=== PATIENT | female | born 1965 | race African-American/Black ===

== ENCOUNTER 2020-02-18 13:05 | Observation (INO) | payer OTHER ==
[~2020-02-18] VITALS: Ht 175.3 cm; Wt 78.0 kg
[2020-02-18 13:42] VITALS: BP 198/109
[2020-02-18] MEDS ORDERED: SYNTHROID125 MC1 PO (13:46)
[2020-02-18] MEDS ORDERED: METFORMIN HCL500 M3 PO (13:47)
[2020-02-18] MEDS ORDERED: PROTONIX40 M4 PO (13:47)
[2020-02-18] MEDS ORDERED: ESTER-C 1,0001 EACH PO (13:48)
[2020-02-18] MEDS ORDERED: DILTIAZEM ER180 M2 PO (13:48)
[2020-02-18] MEDS ORDERED: MAGNESIUM250 M1 PO (13:48)
[2020-02-18] MEDS ORDERED: KLOR-CON 10 ER10 MEQ PO (13:49)
[2020-02-18] MEDS ORDERED: VITAMIN D375 MCG PO (13:49)
[2020-02-18] MEDS ORDERED: EPIPEN JR0.15 MG/01 IM (13:51)
[2020-02-18 14:10] LABS: ABSOLUTE BASOPHILS 0.1 thou/uL (0.0-0.2); ABSOLUTE EOSINOPHILS 0.7 thou/uL (0.0-0.7); ABSOLUTE LYMPHOCYTES 2.8 thou/uL (0.8-5.3); ABSOLUTE MONOCYTES 0.5 thou/uL (0.0-1.2); EOSINOPHILS 8.7 %; HEMATOCRIT 39.1 % (37.0-47.0); HEMOGLOBIN 12.7 gm/dL (12.0-15.0); LYMPHOCYTES 35.2 %; MCH 29.2 pg (26.0-34.0); MCHC 32.5 g/dL (28.0-37.0); MONOCYTES 6.2 %; MPV 7.1 fl. (7.2-11.1); NUCLEATED RBCS 0 /100WBC; PLATELET COUNT* 374 thou/uL (150-400); POLYS 48.9 %; RBC 4.35 mil/uL (4.20-5.00); RDW-CV 15.4 % (10.5-14.5); WBC 8.1 thou/uL (4.0-11.0)
[2020-02-18 14:23] LABS: APTT 24.7 Seconds (25.0-31.3); INR 0.9; PROTIME 10.1 Seconds (9.20-11.50)
[2020-02-18 14:24] LABS: CALCIUM 8.9 mg/dL (8.5-10.1); CREATININE 0.9 mg/dL (0.6-1.3); POTASSIUM 4.1 mmol/L (3.5-5.1)
[2020-02-18 14:28] LABS: ALBUMIN 3.6 g/dL (3.4-5.0); MAGNESIUM 1.9 mg/dL (1.8-2.4); TOTAL BILIRUBIN 0.1 mg/dL (<0.1-1.0); TOTAL PROTEIN 7.8 g/dL (6.4-8.2)
[2020-02-18 16:04] LABS: URINE BILIRUBIN NEGATIVE (Negative); URINE BLOOD NEGATIVE (Negative); URINE CLARITY CLEAR; URINE COLOR YELLOW; URINE GLUCOSE-RANDOM NEGATIVE (Negative); URINE KETONES NEGATIVE (Negative); URINE LEUKOCYTES-REFLEX NEGATIVE (Negative); URINE NITRITE-REFLEX NEGATIVE (Negative); URINE PROTEIN NEGATIVE (Negative); URINE UROBILINOGEN 0.2 E.U./dl (0.2-1.0)
--- NOTE | 2020-02-18 16:35 | EKG ---
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
[2020-02-18 17:41] VITALS: BP 135/82
[2020-02-18 20:20] VITALS: BP 134/75
[2020-02-18 23:56] VITALS: BP 128/76
[2020-02-19 04:00] VITALS: BP 121/87
[2020-02-19 05:14] LABS: CHOLESTEROL 173 mg/dL (<200); HDL CHOLESTEROL 52 mg/dL (>40); LDL CHOLESTEROL 107 mg/dL (<100); SERUM ASSESSMENT CLEAR; TC:HDL 3.3 Ratio (Not establshd); TRIGLYCERIDE 72 mg/dL (<150); VLDL 14 mg/dL (<40)
[2020-02-19 08:00] VITALS: BP 150/82
[2020-02-19] MEDS ORDERED: CARVEDILOL12.5 MG PO (08:05)
[2020-02-19] MEDS ORDERED: ATORVASTATIN CA20 MG PO (08:05)
[2020-02-19] MEDS ORDERED: ASA81BEC PO (08:05)
[2020-02-19 12:07] VITALS: BP 130/79
--- NOTE | 2020-02-19 12:47 | EKG ---
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: : 1965 Requested By: Rowan Hurley Order Number: [id number] Sheila MD: Jovani Hammer Measurements Intervals [place] Rate: 56 P: 41 AL: 210 QRS: 4 QRSD: 89 T: 17 QT: 437 QTc: 422 Interpretive Statements Sinus rhythm Prolonged AL interval Compared to ECG 02/18/2020 13:57:20 First degree AV block now present Electronically Signed On 02-19-2020 12:47:04 [employer] by Jovani Hammer [email or web address] <ELECTRONICALLY SIGNED> By: Jovani Hammer MD, FAC 02/19/20 1247 0847 0847 Jovani Hammer MD, [facility] /EPI
--- NOTE | 2020-02-19 16:37 | CARDNUC ---
[place] [address] CARDIAC NUCLEAR IMAGING REPORT Name: DANIEL JAMES Room: [address] M.R.#: [id number] Admission: 02/18/20 Attend Phys: Parmjit Asif, Discharge: Date of : 63 Date of Service: 02/19/20 1637 Report #: [id number] THIS REPORT FOR: cc: Víctor Sabillon Brad DO Liston, Michael J. MD [facility] ~ APPROVED REPORT Imaging Protocol: Stress Tc-99m/Rest Tc-99m 1 day Study performed: 02/18/2020 18:19:00 Indication: Chest pain, CAD , Mitral Valve Disease Patient Location: In-Patient Room #: 220 Stress Tech: Bernice Pagan Stress Nurse: Omaira Crane RN Ht: 5 ft 9 in Wt: 172 lbs BSA: 1.94 m2 BMI: 25.39 Medical History Medical History: CAD non obstructive, Diabetic Insulin, HTN, Valvular heart disease Medications: diltiazem, atorvastatin, asa 325 Allergies: multiple Cardiac Risk Factors: Age, Diabetes (insulin), HTN Exercise History: Physically active Resting Data Rest SPECT myocardial perfusion imaging was performed in supine position 30 minutes following the intravenous injection of 11.0 mCi of Tc-99m Sestamibi. Time of rest injection: 13:00 The images were gated to evaluate regional wall motion and calculate left ventricular ejection fraction. Administration Route: IV Administration Site: Right Arm Exercise Stress At peak stress, the patient was injected intravenously with 32.0mCi of Tc-99m Sestamibi. Time of stress injection: 14:55 Administration Route: IV Administration Site: [place] [address] CARDIAC NUCLEAR IMAGING REPORT Name: DANIEL JAMES Adelina Room: [address] M..#: [id number] Admission: 02/18/20 Attend Phys: Parmjit Asif, Discharge: Date of : 63 Date of Service: 02/19/20 1637 Report #: [id number] Heart Rate at time of stress injection: 171 bpm. Patient continued to exercise for 1 minute(s). Gated Stress SPECT was performed 30 minutes after stress injection. The images were gated to evaluate regional wall motion and calculate left ventricular ejection fraction. Prone imaging was performed. Stress Test Details Stress Test: Exercise stress testing was performed using a Daniel protocol. HR Max Heart Rate (APMHR): 165 bpm Resting HR: 94 bpm Target HR (85% APMHR): 140 bpm Max HR Achieved: 171 bpm % of APMHR: 103 Recovery HR: 110 bpm BP Resting BP: 147/86 mmHg Max BP: 205/95 mmHg Recovery BP: 151/89 mmHg ECG Resting ECG: Sinus Rhythm Stress ECG: Sinus Tachycardia ST Change: None Arrhythmia: None Recovery ECG: Sinus Rhythm Recovery ST Change: None Recovery Arrhythmia: VPC's Clinical Reason for Termination: Fatigue Exercise duration: 7 min 00 sec Exercise capacity: 8.57 METs Overall Exercise Capacity for Age: Normal Functional Aerobic Impairment 103% The patient had no cardiac symptoms with the standard Daniel protocol exercise. Nurse Comments pt had hypoglycemic episode prior to test. finger stick 54. pt given orange juice than stated she felt fine Stress ECG Conclusion Baseline twelve-lead EKG shows sinus rhythm [place] [address] CARDIAC NUCLEAR IMAGING REPORT Name: ERIKA,DANIEL Adelina Room: [address] M.R.#: [id number] Admission: 02/18/20 Attend Phys: Parmjit Asif, Discharge: Date of : 63 Date of Service: 02/19/20 1637 Report #: [id number] segment abnormality. EKGs obtained during and post exercise show sinus rhythm and sinus tachycardia with no significant ST segment changes when compared to baseline. There were occasional unifocal premature ventricular contractions in the recovery phase. Study Quality Study: Good Artifact: No artifact Study Data At rest, the left ventricular ejection fraction was 68%.. Post stress, the left ventricular ejection was 65%.. TID = 0.98. Perfusion Perfusion images obtained at rest and post exercise stress showed uniform uptake of the radioisotope throughout the myocardium. There were no defects to suggest infarct or ischemia. Wall Motion Normal left ventricular wall motion. Nuclear Conclusion ECG Findings: negative for ischemia Clinical Findings: negative for ischemia Nuclear Findings: negative for ischemia Exercise Capacity: Limited Left Ventricular Function: normal Risk Study: low Perfusion images show no defect to suggest infarct or ischemia. Left ventricular systolic function appears normal on gated studies. This is a low risk study. <Conclusion> Baseline twelve-lead EKG shows sinus rhythm without significant ST segment abnormality. EKGs obtained during and post exercise show sinus rhythm and sinus tachycardia with no significant ST segment changes when compared to baseline. There were occasional unifocal premature ventricular contractions in the recovery phase. <ELECTRONICALLY SIGNED> By: Jovani Hammer MD, FACC 02/19/20 1637 1637 1637 Jovani Hammer MD, FACC /INF
[2020-02-19 16:42] VITALS: BP 130/79
[2020-02-19 16:59] VITALS: BP 142/90
== END 2020-02-19 17:11 | disposition home or self-care (01) ==
LOC: M.ERS 13:05 → M.2W 15:44 → M.TBA-ER 15:44 → M.2W 17:54
PROVIDERS: Family Medicine; Nurse Practitioner Family; ADMIT Internal Medicine; ATTEND Internal Medicine
DX: I16.1 Hypertensive emergency (principal); R07.89 Other chest pain; E03.9 Hypothyroidism, unspecified; F41.0 Panic disorder [episodic paroxysmal anxiety]; E78.5 Hyperlipidemia, unspecified; I10 Essential (primary) hypertension; E11.9 Type 2 diabetes mellitus without complications; Z79.84 Long term (current) use of oral hypoglycemic drugs; Z79.899 Other long term (current) drug therapy; Z20.828 Contact with and (suspected) exposure to other viral communicable diseases; Z23 Encounter for immunization

== ENCOUNTER → 2020-02-24 | Outpatient (CLI) | payer OTHER ==
[~2020-02-24] MED LIST: ASA81BEC PO; ATORVASTATIN CA20 MG PO; CARVEDILOL12.5 MG PO; DILTIAZEM ER180 M2 PO; EPIPEN JR0.15 MG/01 IM; ESTER-C 1,0001 EACH PO; KLOR-CON 10 ER10 MEQ PO; MAGNESIUM250 M1 PO; METFORMIN HCL500 M3 PO; PROTONIX40 M4 PO; SYNTHROID125 MC1 PO; VITAMIN D375 MCG PO
== END ==
LOC: M.RAD 09:15
PROVIDERS: ATTEND Family Medicine
DX: Z12.31 Encounter for screening mammogram for malignant neoplasm of breast (principal)

== ENCOUNTER → 2020-09-13 | Outpatient (CLI) | payer OTHER | LOC: M.RAD 11:28 | PROVIDERS: ATTEND Family Medicine | DX: T21.01XA Burn of unspecified degree of chest wall, initial encounter (principal); R06.02 Shortness of breath; R05 Cough; X58.XXXA Exposure to other specified factors, initial encounter; Y92.89 Other specified places as the place of occurrence of the external cause; Y93.89 Activity, other specified; Y99.8 Other external cause status ==